=== PATIENT | female | born 1955 | race Caucasian/White ===

== ENCOUNTER 2019-04-12 23:01 | Inpatient (IN) | payer OTHER ==
[~2019-04-12] VITALS: Ht 167.6 cm; Wt 103.6 kg
[~2019-04-12 23:01] MED LIST: niCARDipine in NS 40mg/200ml (0.2mg/ml) IVPB IV ONE
[2019-04-12] MEDS: niCARDipine-NS 40mg/200ml IVPB 200 ML IV SCH (23:37)
[2019-04-12 23:48] LABS: BASOPHILS # (AUTO) 0.1 X10'3 (0-0.2); EOSINOPHILS % (AUTO) 0.6 % (0-6); HEMATOCRIT 42.5 % (35.0-45.0); HEMOGLOBIN 14.8 g/dl (12.0-16.0); LYMPHOCYTES # (AUTO) 2.1 X10'3 (1.1-4.8); LYMPHOCYTES % (AUTO) 28.8 % (21-51); MEAN CORPUSCULAR HEMOGLOBIN 31.9 PG (27.0-31.0); MEAN CORPUSCULAR HGB CONC 34.9 g/dL (33.0-36.5); MEAN CORPUSCULAR VOLUME 91.4 FL (78-98); MEAN PLATELET VOLUME 8.5 FL (7.4-10.4); MONOCYTES # (AUTO) 0.5 X10'3 (0-0.9); MONOCYTES % (AUTO) 6.6 % (2-12); NEUTROPHILS # (AUTO) 4.7 X10'3 (1.8-7.7); PLATELET COUNT 265 X10'3 (140-440); RED BLOOD COUNT 4.65 X10'6 (4.20-5.60); RED CELL DISTRIBUTION WIDTH 13.5 % (11.5-14.5); WHITE BLOOD COUNT 7.4 X10'3 (4.5-11.0)
[2019-04-12 23:59] LABS: PARTIAL THROMBOPLASTIN TIME 25 SECONDS (22-32)
[2019-04-13] VITALS (26 sets, daily range): BP systolic 112–202; BP diastolic 73–105
[2019-04-13] LABS: ALANINE AMINOTRANSFERASE 37 U/L (12-78); ALBUMIN 3.6 G/DL (3.4-5.0); ALKALINE PHOSPHATASE 75 IU/L (46-116); ANION GAP 11 (8-16); ASPARTATE AMINO TRANSFERASE 18 U/L (10-37); BILIRUBIN,TOTAL 0.5 MG/DL (0.1-1.0); BLOOD UREA NITROGEN 12 MG/DL (7-18); BUN/CREATININE RATIO 13.6 (6.6-38.0); CALCIUM 9.2 MG/DL (8.5-10.1); CHLORIDE 103 MMOL/L (99-107); CREATININE 0.88 MG/DL (0.40-0.90); GLUCOSE 127 MG/DL (70-104); POTASSIUM 3.7 MMOL/L (3.5-5.1); SODIUM 140 MMOL/L (135-145); TOTAL CARBON DIOXIDE 25.9 MMOL/L (24-32); TOTAL PROTEIN 7.3 G/DL (6.4-8.2); eGFR 65 ML/MIN
[2019-04-13 00:02] LABS: TROPONIN I < 0.04 NG/ML (0.0-0.05)
[2019-04-13] MEDS ORDERED: aspirin 325mg tablet PO ONE (00:35)
--- NOTE | 2019-04-13 00:44 | NUR ---
Per Dr. Carrillo's, he was ok with pt having a BP of 186/106.
[2019-04-13] MEDS: niCARDipine-NS 40mg/200ml IVPB 200 ML IV SCH (01:48)
[2019-04-13] MEDS ORDERED: NO HOME MEDS (02:15)
[2019-04-13] MEDS ORDERED: normal saline 1000ml 1,000 ML IV SCH (02:19)
[2019-04-13] MEDS ORDERED: acetaminophen 325mg tablet PO PRN ×2 (02:20)
[2019-04-13] MEDS ORDERED: magnesium hydroxide 30ml (MOM) UD suspension PO PRN (02:20)
[2019-04-13] MEDS ORDERED: glucagon, human recombinant 1mg kit SUBCUT PRN (02:20)
[2019-04-13] MEDS ORDERED: MESSAGE TO PHARMACY PO ONE (02:20)
[2019-04-13] MEDS ORDERED: ondansetron/PF 4mg/2ml inj IV PRN (02:20)
[2019-04-13] MEDS ORDERED: diphenhydrAMINE 25mg capsule PO PRN (02:20)
[2019-04-13] MEDS ORDERED: dextrose ORAL solution 15 GM/59 ML bottle PO PRN ×2 (02:20)
[2019-04-13] MEDS ORDERED: insulin Lispro (HumaLOG) vial - multi-dose SQ SCH (02:20)
[2019-04-13] MEDS ORDERED: LORazepam 2 mg/ml vial IV PRN (02:20)
[2019-04-13] MEDS ORDERED: magnesium Cl slow-release 64mg tablet PO PRN (02:20)
[2019-04-13] MEDS ORDERED: dextrose 50%-water 50ml dispensing syringe IV PRN ×2 (02:20)
[2019-04-13] MEDS ORDERED: potassium Cl 20 mEq SR tablet PO PRN (02:20)
[2019-04-13] MEDS ORDERED: atorvastatin 20mg tablet PO ONE (02:40)
[2019-04-13] MEDS ORDERED: niCARDipine-NS 40mg/200ml IVPB 200 ML IV PRN (02:42)
--- NOTE | 2019-04-13 03:30 | NUR ---
pt arrived to unit just after 0330. alert and oriented. BP 193 systolic on cardene. continue to monitor.
--- NOTE | 2019-04-13 06:06 | NUR ---
cardene turned off at 3714
[2019-04-13 06:28] LABS: BASOPHILS # (AUTO) 0.1 X10'3 (0-0.2); BASOPHILS % (AUTO) 0.7 % (0-1); EOSINOPHILS # (AUTO) 0.1 X10'3 (0-0.9); EOSINOPHILS % (AUTO) 0.7 % (0-6); HEMATOCRIT 40.6 % (35.0-45.0); HEMOGLOBIN 14.2 g/dl (12.0-16.0); LYMPHOCYTES # (AUTO) 2.6 X10'3 (1.1-4.8); LYMPHOCYTES % (AUTO) 32.2 % (21-51); MEAN CORPUSCULAR HEMOGLOBIN 31.9 PG (27.0-31.0); MEAN PLATELET VOLUME 8.6 FL (7.4-10.4); MONOCYTES # (AUTO) 0.6 X10'3 (0-0.9); MONOCYTES % (AUTO) 7.3 % (2-12); NEUTROPHILS # (AUTO) 4.7 X10'3 (1.8-7.7); NEUTROPHILS % (AUTO) 59.1 % (42-75); PLATELET COUNT 264 X10'3 (140-440); RED BLOOD COUNT 4.46 X10'6 (4.20-5.60); RED CELL DISTRIBUTION WIDTH 13.2 % (11.5-14.5)
[2019-04-13 06:32] LABS: PARTIAL THROMBOPLASTIN TIME 25 SECONDS (22-32)
[2019-04-13 06:37] LABS: ALANINE AMINOTRANSFERASE 33 U/L (12-78); ALBUMIN 3.3 G/DL (3.4-5.0); ALBUMIN/GLOBULIN RATIO 0.9 (1.1-1.5); ALKALINE PHOSPHATASE 69 IU/L (46-116); ANION GAP 10 (8-16); ASPARTATE AMINO TRANSFERASE 17 U/L (10-37); BILIRUBIN,TOTAL 0.6 MG/DL (0.1-1.0); BLOOD UREA NITROGEN 10 MG/DL (7-18); BUN/CREATININE RATIO 12.8 (6.6-38.0); CALCIUM 8.8 MG/DL (8.5-10.1); CHLORIDE 102 MMOL/L (99-107); CREATININE 0.78 MG/DL (0.40-0.90); GLUCOSE 108 MG/DL (70-104); POTASSIUM 3.3 MMOL/L (3.5-5.1); SODIUM 139 MMOL/L (135-145); TOTAL CARBON DIOXIDE 27.2 MMOL/L (24-32); TOTAL PROTEIN 6.8 G/DL (6.4-8.2); eGFR 75 ML/MIN
[2019-04-13 06:45] LABS: MAGNESIUM 1.6 MG/DL (1.5-2.4); TROPONIN I < 0.04 NG/ML (0.0-0.05)
[2019-04-13] MEDS: K, MAG and/or Phos replacement - Verify level? MC SCH (07:31)
[2019-04-13] MEDS: aspirin 81mg tablet.DR PO SCH (07:37)
[2019-04-13] MEDS: potassium Cl 20 mEq SR tablet PO PRN ×3 (07:38→16:06)
[2019-04-13] MEDS: enoxaparin 40mg/0.4ml syringe SUBCUT SCH (07:39)
[2019-04-13] MEDS: docusate sod 100mg capsule PO SCH ×2 (07:41→20:00)
[2019-04-13] MEDS: HYDROchlorothiazide 12.5mg capsule PO SCH (10:36)
[2019-04-13] MEDS: losartan 50mg tablet PO SCH (10:36)
--- NOTE | 2019-04-13 11:06 | NUR ---
CARDENE TURNED BACK ON AT 0800 THIS AM FOR SBP OVER 200. DR. PINEDO AWARE. PO MEDS GIVEN FOR BP. WILL TITRATE CARDENE OFF BP COMES DOWN. STROKE RN SHER IN TO SEE PT. NOW. MRI DONE.
[2019-04-13 11:30] LABS: CHOL/HDL RATIO 6.3 (0.00-4.99); CHOLESTEROL 290 MG/DL (0-200); HDL CHOLESTEROL 46 MG/DL (35-60); LDL CHOLESTEROL 188 MG/DL (50-100); TRIGLYCERIDES 428 MG/DL (20-135)
--- NOTE | 2019-04-13 11:31 | NUR ---
Nicardipine stopped BP 155/90.
--- NOTE | 2019-04-13 15:51 | NUR ---
DM consult, A1c is 7; prior to discharge patient needs written DM education handout with verbal review and referral to outpatient DM education class on Saturday. Addendum: 04/13/19 at [address] Amended: Links added.
--- NOTE | 2019-04-13 16:16 | NUR ---
Dr. Feliciano in to see pt. and review test results with her. K+ replaced this shift. Call light in reach. Pt. denies c/o, needs at this time.
--- NOTE | 2019-04-13 16:17 | NUR ---
Dr. Feliciano noted the SBP to be 126. Stated to hold the cardizem tonight (1745 dose).
[2019-04-13] MEDS: diltiazem CD 120mg capsule (once-daily) PO SCH (16:20)
--- NOTE | 2019-04-13 19:01 | NUR ---
Received patient report from Suyapa ENRIQUE. Pt's daughter and granddaughter at bedside.
[2019-04-13] MEDS: insulin glargine (Lantus) pen - multi-dose SQ SCH (21:00)
--- NOTE | 2019-04-13 21:05 | NUR ---
Pt. declined PM accucheck
[2019-04-14] VITALS (25 sets, daily range): BP systolic 125–205; BP diastolic 73–119
[2019-04-14 04:56] LABS: BASOPHILS # (AUTO) 0.1 X10'3 (0-0.2); BASOPHILS % (AUTO) 0.7 % (0-1); EOSINOPHILS # (AUTO) 0.2 X10'3 (0-0.9); EOSINOPHILS % (AUTO) 2.3 % (0-6); HEMATOCRIT 42.7 % (35.0-45.0); HEMOGLOBIN 14.8 g/dl (12.0-16.0); LYMPHOCYTES # (AUTO) 2.1 X10'3 (1.1-4.8); LYMPHOCYTES % (AUTO) 28.2 % (21-51); MEAN CORPUSCULAR HEMOGLOBIN 31.4 PG (27.0-31.0); MEAN CORPUSCULAR HGB CONC 34.6 g/dL (33.0-36.5); MEAN CORPUSCULAR VOLUME 90.8 FL (78-98); MEAN PLATELET VOLUME 8.5 FL (7.4-10.4); MONOCYTES # (AUTO) 0.6 X10'3 (0-0.9); NEUTROPHILS # (AUTO) 4.4 X10'3 (1.8-7.7); NEUTROPHILS % (AUTO) 60.8 % (42-75); PLATELET COUNT 270 X10'3 (140-440); RED BLOOD COUNT 4.71 X10'6 (4.20-5.60); RED CELL DISTRIBUTION WIDTH 13.2 % (11.5-14.5); WHITE BLOOD COUNT 7.3 X10'3 (4.5-11.0)
[2019-04-14 04:57] LABS: PARTIAL THROMBOPLASTIN TIME 25 SECONDS (22-32)
[2019-04-14 05:04] LABS: ALANINE AMINOTRANSFERASE 34 U/L (12-78); ALBUMIN 3.5 G/DL (3.4-5.0); ALKALINE PHOSPHATASE 79 IU/L (46-116); ANION GAP 9 (8-16); ASPARTATE AMINO TRANSFERASE 17 U/L (10-37); BILIRUBIN,TOTAL 0.8 MG/DL (0.1-1.0); BLOOD UREA NITROGEN 10 MG/DL (7-18); CALCIUM 9.2 MG/DL (8.5-10.1); CHLORIDE 98 MMOL/L (99-107); CHOL/HDL RATIO 7.3 (0.00-4.99); CHOLESTEROL 293 MG/DL (0-200); CREATININE 0.77 MG/DL (0.40-0.90); GLUCOSE 121 MG/DL (70-104); HDL CHOLESTEROL 40 MG/DL (35-60); LDL CHOLESTEROL 140 MG/DL (50-100); MAGNESIUM 1.9 MG/DL (1.5-2.4); PHOSPHORUS 3.4 MG/DL (2.3-4.5); POTASSIUM 4.2 MMOL/L (3.5-5.1); SODIUM 135 MMOL/L (135-145); TOTAL CARBON DIOXIDE 28.1 MMOL/L (24-32); TOTAL PROTEIN 7.1 G/DL (6.4-8.2); TRIGLYCERIDES 762 MG/DL (20-135); eGFR 76 ML/MIN
--- NOTE | 2019-04-14 06:15 | NUR ---
Pt report given to Suyapa ENRIQUE
[2019-04-14] MEDS: diltiazem CD 120mg capsule (once-daily) PO SCH (07:06)
[2019-04-14] MEDS: HYDROchlorothiazide 12.5mg capsule PO SCH (07:06)
[2019-04-14] MEDS: losartan 50mg tablet PO SCH (07:06)
[2019-04-14] MEDS: aspirin 81mg tablet.DR PO SCH (07:06)
[2019-04-14] MEDS: enoxaparin 40mg/0.4ml syringe SUBCUT SCH (07:09)
[2019-04-14] MEDS: K, MAG and/or Phos replacement - Verify level? MC SCH (07:09)
[2019-04-14] MEDS: docusate sod 100mg capsule PO SCH ×2 (07:09→20:00)
[2019-04-14] MEDS ORDERED: metFORMIN 500mg tablet PO ONE (08:05)
[2019-04-14] MEDS: fenofibrate 48mg tablet PO SCH (08:37)
[2019-04-14 09:54] LABS: COLOR,URINE YELLOW (Yellow); GLUCOSE, URINE NEGATIVE (Neg); KETONES,URINE NEGATIVE (Neg); LEUKOCYTE ESTERASE ,URINE NEGATIVE (Neg); NITRITES, URINE NEGATIVE (Neg); OCCULT BLOOD,URINE NEGATIVE (Neg); PROTEIN,URINE NEGATIVE (Neg); UROBILINOGEN,URINE 0.2 E.U/dL (0.2-1.0)
[2019-04-14] MEDS ORDERED: pneumococcal 23-VAL P-sac vacc 25 mcg/0.5ml vial IMVAC ONE (10:00)
[2019-04-14 10:06] LABS: UA COLLECTION TYPE NON-SPECIFIED
[2019-04-14 10:07] LABS: CLARITY,URINE SLIGHTLY CLOUDY (Clear)
[2019-04-14 10:08] LABS: BACTERIA,URINE 3+ /HPF (Neg); RBC,URINE NONE SEEN /HPF (0-2); SQUAMOUS EPITHELIAL CELL,UR MANY /LPF (FEW); WBC,URINE 0-4 /HPF (0-4)
[2019-04-14] MEDS ORDERED: ALPRAZolam 0.25mg tablet PO PRN (10:55)
--- NOTE | 2019-04-14 11:06 | NUR ---
RN notified Dr. Braden poon. BP 175/120s. Stated to start the Cardene back on and give Xanax.
--- NOTE | 2019-04-14 13:02 | NUR ---
Tele neuro consult done this shift with Dr. Browne. Stroke RN aware of consult report.
[2019-04-14] MEDS: clopidogrel 75mg tablet PO SCH (15:17)
--- NOTE | 2019-04-14 15:30 | NUR ---
Mireya rodríguez. Dr. Feliciano notified of pt's last few BPs. Order for Plavix received and Plavix administered to pt. States he may discharge her home this evening.
--- NOTE | 2019-04-14 18:00 | NUR ---
Dr. Feliciano called for an update. States he will most likely discharge pt. home tomorrow.
[2019-04-14] MEDS: metFORMIN 500mg tablet PO SCH (20:46)
[2019-04-14] MEDS ORDERED: atorvastatin 20mg tablet PO SCH (21:00)
[2019-04-14] MEDS: insulin glargine (Lantus) pen - multi-dose SQ SCH (21:00)
[2019-04-15] VITALS (13 sets, daily range): BP systolic 127–160; BP diastolic 76–111
[2019-04-15 05:05] LABS: BASOPHILS # (AUTO) 0.1 X10'3 (0-0.2); BASOPHILS % (AUTO) 0.7 % (0-1); EOSINOPHILS # (AUTO) 0.1 X10'3 (0-0.9); EOSINOPHILS % (AUTO) 1.7 % (0-6); HEMATOCRIT 44.2 % (35.0-45.0); HEMOGLOBIN 15.1 g/dl (12.0-16.0); LYMPHOCYTES % (AUTO) 25.1 % (21-51); MEAN CORPUSCULAR HEMOGLOBIN 31.2 PG (27.0-31.0); MEAN CORPUSCULAR HGB CONC 34.1 g/dL (33.0-36.5); MEAN CORPUSCULAR VOLUME 91.5 FL (78-98); MEAN PLATELET VOLUME 8.5 FL (7.4-10.4); MONOCYTES # (AUTO) 0.6 X10'3 (0-0.9); MONOCYTES % (AUTO) 7.1 % (2-12); NEUTROPHILS # (AUTO) 5.3 X10'3 (1.8-7.7); NEUTROPHILS % (AUTO) 65.4 % (42-75); PLATELET COUNT 272 X10'3 (140-440); RED BLOOD COUNT 4.83 X10'6 (4.20-5.60); RED CELL DISTRIBUTION WIDTH 13.6 % (11.5-14.5); WHITE BLOOD COUNT 8.2 X10'3 (4.5-11.0)
[2019-04-15 05:17] LABS: PARTIAL THROMBOPLASTIN TIME 26 SECONDS (22-32)
[2019-04-15 05:27] LABS: ALANINE AMINOTRANSFERASE 37 U/L (12-78); ALBUMIN 3.5 G/DL (3.4-5.0); ALBUMIN/GLOBULIN RATIO 0.9 (1.1-1.5); ALKALINE PHOSPHATASE 77 IU/L (46-116); ANION GAP 8 (8-16); ASPARTATE AMINO TRANSFERASE 22 U/L (10-37); BILIRUBIN,TOTAL 0.6 MG/DL (0.1-1.0); BLOOD UREA NITROGEN 15 MG/DL (7-18); BUN/CREATININE RATIO 16.7 (6.6-38.0); CALCIUM 9.6 MG/DL (8.5-10.1); CHLORIDE 100 MMOL/L (99-107); GLUCOSE 124 MG/DL (70-104); MAGNESIUM 1.9 MG/DL (1.5-2.4); PHOSPHORUS 4.3 MG/DL (2.3-4.5); POTASSIUM 4.1 MMOL/L (3.5-5.1); SODIUM 137 MMOL/L (135-145); TOTAL CARBON DIOXIDE 28.9 MMOL/L (24-32); TOTAL PROTEIN 7.3 G/DL (6.4-8.2); eGFR 63 ML/MIN
--- NOTE | 2019-04-15 06:24 | NUR ---
Problems reprioritized. Patient report given, questions answered & plan of care reviewed with Katherin ENRIQUE.
[2019-04-15] MEDS: K, MAG and/or Phos replacement - Verify level? MC SCH (06:38)
[2019-04-15] MEDS: diltiazem CD 120mg capsule (once-daily) PO SCH (07:19)
[2019-04-15] MEDS: aspirin 81mg tablet.DR PO SCH (07:19)
[2019-04-15] MEDS: losartan 50mg tablet PO SCH (07:19)
[2019-04-15] MEDS: docusate sod 100mg capsule PO SCH (07:19)
[2019-04-15] MEDS: clopidogrel 75mg tablet PO SCH (07:20)
[2019-04-15] MEDS: HYDROchlorothiazide 12.5mg capsule PO SCH (07:20)
[2019-04-15] MEDS: fenofibrate 48mg tablet PO SCH (07:49)
[2019-04-15] MEDS: metFORMIN 500mg tablet PO SCH (07:49)
[2019-04-15] MEDS: enoxaparin 40mg/0.4ml syringe SUBCUT SCH (08:00)
[2019-04-15] MEDS ORDERED: LOSA50TA64 PO (08:47)
[2019-04-15] MEDS ORDERED: FENO48TA9 PO (08:47)
[2019-04-15] MEDS ORDERED: CLOP75TA35 PO (08:47)
[2019-04-15] MEDS ORDERED: HYDROchlorothiazide tablet PO (08:47)
[2019-04-15] MEDS ORDERED: CARCD120C PO (08:47)
[2019-04-15] MEDS ORDERED: ATOR20TA66 PO (08:47)
[2019-04-15] MEDS ORDERED: METF-950 PO (08:47)
[2019-04-15] MEDS ORDERED: ASPI-1071 PO (08:47)
[2019-04-15] MEDS ORDERED: pneumococcal 23-VAL P-sac vacc 25 mcg/0.5ml vial IMVAC ONE (10:00)
== END 2019-04-15 13:28 | disposition home or self-care (01) | DRG 65 ==
LOC: ER 23:02 → ED HOLD 04-13 02:42 → ICU 2S 04-13 03:32
PROVIDERS: ADMIT Internal Medicine Critical Care Medicine; ATTEND Internal Medicine Critical Care Medicine
DX: I63.9 Cerebral infarction, unspecified (principal); I16.1 Hypertensive emergency; E11.9 Type 2 diabetes mellitus without complications; E78.5 Hyperlipidemia, unspecified; G47.00 Insomnia, unspecified; I10 Essential (primary) hypertension; R29.701 NIHSS score 1; Z85.43 Personal history of malignant neoplasm of ovary; Z90.710 Acquired absence of both cervix and uterus; Z28.21 Immunization not carried out because of patient refusal; Z79.899 Other long term (current) drug therapy
CPT/HCPCS: 36415; 70450; 70544; 70547; 70551; 71045; 80053; 80061; 81001; 82570; 82948; 83036; 83735; 84100; 84156; 84443; 84484; 85025; 85610; 85730; 90732; 93005; 93306; 93880; 96374; 97110; 97161; 99291; 99292; G0378; J1650; J1815; J2060; J7030; Q0163